=== PATIENT | female | born 1985 | race Caucasian/White ===

== ENCOUNTER 2017-04-25 19:52 | Emergency (ER) | payer BC ==
[2017-04-25 19:52] VITALS: BMI 20.5
[2017-04-25] MEDS ORDERED: Pantoprazole 80 MG in Sodium Chloride 0.9% 100 ML IV STA (20:09)
[2017-04-25] MEDS ORDERED: Sodium Chloride 0.9% 1,000 ML IV ONE (20:09)
--- NOTE | 2017-04-25 20:09 | C.PDOC ---
History Of Present Illness Patient with a hx of diverticulitis presents to the ER with a complaint of rectal bleeding and left flank pain for the past 2 days, associated with decreased PO intake. Denies fever, chills, nausea, or vomiting. Time Seen by Provider: 04/25/17 20:08 Chief Complaint (Nursing): GI Problem History Per: Patient History/Exam Limitations: no limitations Onset/Duration Of Symptoms: Days Current Symptoms Are (Timing): Still Present Number Of Bleeding Episodes: Unknown Amount of Blood Loss: Small Severity: Moderate Pain Scale Rating Of: 5 Quality Of Discomfort: "Pain" Associated Symptoms: Rectal Bleeding. denies: Nausea, Vomiting, Other ((+) Left flank pain (-) Fever, Chills) Modifying Factors: None Recent travel outside of the [place]: No Additional History Per: Patient Past Medical History Reviewed: Historical Data, Nursing Documentation, Vital Signs Vital Signs: Last Vital Signs Temp Pulse 72 04/25/17 22:46 Resp 17 04/25/17 22:46 BP 135/47 L 04/25/17 22:46 Pulse Ox 100 04/25/17 22:46 - Medical History PMH: HTN (treated) - [facility] Procedures CERVICAL LES CAUTERIZAT (12/09/14) D & C NEC (12/09/14) Family History: States: No Known Family Hx - Social History Hx Alcohol Use: No Hx Substance Use: No Review Of Systems Constitutional: Negative for: Fever, Chills ENT: Negative for: Throat Pain Cardiovascular: Negative for: Chest Pain Respiratory: Negative for: Shortness of Breath Gastrointestinal: Positive for: Abdominal Pain, Other (Rectal bleeding). Negative for: Nausea, Vomiting Genitourinary: Negative for: Dysuria Musculoskeletal: Positive for: Back Pain Skin: Negative for: Rash, Lesions Neurological: Negative for: Weakness Psych: Negative for: Anxiety Physical Exam - Physical Exam Appears: Non-toxic Skin: Warm, Dry Head: Normacephalic Eye(s): bilateral: Normal Inspection Oral Mucosa: Dry Neck: Supple Chest: Symmetrical, No Tenderness Cardiovascular: Rhythm Regular Respiratory: No Rales, No Rhonchi, No Wheezing Gastrointestinal/Abdominal: Soft, Tenderness (Diffusely, left side greater than right), Guarding (Voluntary), No Rebound Rectal: Normal Exam, Heme Negative, Other (Dark brown stools) Back: No CVA Tenderness (left) Extremity: Normal ROM Extremity: Bilateral: Atraumatic Pulses: Left Dorsalis Pedis: Normal, Right Dorsalis Pedis: Normal Neurological/Psych: Oriented x3 Gait: Steady ED Course And Treatment - Laboratory Results Result Diagrams: 04/25/17 20:33 04/25/17 20:33 O2 Sat by Pulse Oximetry: 100 Pulse Ox Interpretation: Normal Progress Note: Blood work and urinalysis ordered. Morphine, zofran, and IV fluids administered. Medical Decision Making Medical Decision Making: Upon provider reevaluation patient is feeling better, is medically stable, and requires no further treatment in the ED at this time. Patient will be discharged home with Rx for tramadol . Counseling was provided and all questions were answered regarding diagnosis and need for follow up with your PMD and head esthetician. There is agreement to discharge plan. Return if symptoms persist or worsen. Disposition Counseled Patient/Family Regarding: Studies Performed, Diagnosis, Need For Followup, Rx Given - Disposition Disposition: HOME/ ROUTINE Disposition Time: 20:09 Condition: FAIR Additional Instructions: Please follow up with your primary care doctor and your head esthetician re":left ovarian cyst Prescriptions: traMADol [Ultram] 50 mg PO QID PRN #20 tab PRN Reason: Pain, Severe (8-10) Instructions: Abdominal Pain (ED), Ovarian Cyst (ED) Forms: [employer] (Portuguese) - Clinical Impression Clinical Impression: Abdominal pain, Ovarian cyst - Scribe Statement The provider has reviewed the documentation as recorded by the Scribe Zechariah De Dios All medical record entries made by the Scribe were at my direction and personally dictated by me. I have reviewed the chart and agree that the record accurately reflects my personal performance of the history, physical exam, medical decision making, and the department course for this patient. I have also personally directed, reviewed, and agree with the discharge instructions and disposition.
[2017-04-25] MEDS ORDERED: Sodium Chloride 0.9% 1,000 ML ONE (20:31)
[2017-04-25] MEDS ORDERED: Sodium Chloride 0.9% 100 ML ONE (20:31)
[2017-04-25] MEDS ORDERED: Morphine 4 MG/ML VIAL ONE (20:31)
[2017-04-25 20:39] LABS: BASO # 0.1 K/uL (0.0-0.2); BASO % 0.6 % (0.0-2.0); EOS # 0.1 K/uL (0.0-0.7); EOS % 0.8 % (0.0-4.0); HEMOGLOBIN 13.4 g/dL (11.0-16.0); LYMPH # 2.4 K/uL (1.0-4.3); LYMPH % 25.2 % (20.0-40.0); MEAN CELL VOLUME 84.5 fL (81.0-99.0); MEAN CORPUSCULAR HEMOGLOBIN 28.8 pg (27.0-31.0); MEAN CORPUSCULAR HGB CONC 34.1 g/dL (33.0-37.0); MEAN PLATELET VOLUME 8.4 fL (7.2-11.7); MONO # 0.8 K/uL (0.0-0.8); MONO % 8.4 % (0.0-10.0); NEUT # 6.2 K/uL (1.8-7.0); NRBC % 0.1 % (0.0-2.0); RBC 4.67 Mil/uL (3.80-5.20); RED CELL DISTRIBUTION WIDTH 13.4 % (11.5-14.5); WHITE BLOOD COUNT 9.6 K/uL (4.8-10.8)
[2017-04-25 20:46] LABS: PROTHROMBIN TIME 11.5 SECONDS (9.7-12.2)
[2017-04-25 20:50] LABS: ALB/GLOB RATIO 1.4 (1.0-2.1); ALBUMIN 4.2 g/dL (3.5-5.0); ALT/SGPT 28 U/L (9-52); AST/SGOT 22 U/L (14-36); BLOOD UREA NITROGEN 9 mg/dL (7-17); GFR AFRICAN-AMERICAN > 60; GFR NON-AFRICAN AMERICAN > 60
[2017-04-25 21:24] LABS: HCG,QUALITATIVE URINE NEGATIVE (NEGATIVE)
[2017-04-25 21:26] LABS: SQUAMOUS EPITHIAL 1 /hpf (0-5); URINE BACTERIA RARE (<OCC); URINE BILIRUBIN NEGATIVE (NEGATIVE); URINE BLOOD NEGATIVE (NEGATIVE); URINE CLARITY Clear (Clear); URINE COLOR Colorless (YELLOW); URINE GLUCOSE (UA) NORMAL (Normal); URINE LEUKOCYTE ESTERASE NEG Leu/uL (Negative); URINE NITRATE NEGATIVE (NEGATIVE); URINE PROTEIN NEGATIVE (NEGATIVE); URINE UROBILINOGEN NORMAL mg/dL (0.2-1.0)
[2017-04-25 23:47] VITALS: BP 126/65; PULSE 75; RESP 18; TEMP 98.5; O2SAT 99
--- NOTE | 2017-04-26 08:44 | CT ---
PROCEDURE: CT scan of the abdomen and pelvis dated 04/25/2017 HISTORY: Abdominal pain. , rectal bleed, hx of divertic COMPARISON: No prior study available for comparison TECHNIQUE: Contiguous axial images of the abdomen and pelvis. Oral contrast was administered. No IV contrast given. Coronal and Sagittal reformats generated. Radiation dose: Total exam DLP = This CT exam was performed using one or more of the following dose reduction techniques: Automated exposure control, adjustment of the mA and/or kV according to patient size, and/or use of iterative reconstruction technique. FINDINGS: LOWER THORAX: Minor bibasilar atelectasis/ scarring changes. No focal consolidation effusion or basilar pneumothorax. Small hiatal hernia. Heart size within range of normal. No significant pericardial effusion. LIVER: Liver exhibits normal size. No evidence of obvious hepatic masses collections or calcifications. GALLBLADDER AND BILE DUCTS: Gallbladder is physiologically distended. No evidence of intraluminal gallbladder calculi. PANCREAS: Pancreas appears unremarkable without masses collections or calcifications. SPLEEN: Spleen exhibits normal size and attenuation pattern without mass collection or calcification. . ADRENALS: No adrenal lesions seen. KIDNEYS AND URETERS: The kidneys demonstrate relatively symmetric size. No evidence of nephrolithiasis or hydronephrosis. BLADDER: Urinary bladder is physiologically distended. No evidence of intraluminal urinary bladder calculi. . REPRODUCTIVE: Uterus appears grossly unremarkable. There is a relatively large approximately 3.4 x 3.2 cm cystic lesion left ovary. Follow-up pelvic ultrasound could be performed further evaluation. APPENDIX: What appears to represent normal appendix best seen on axial image number [id number] . No periappendiceal inflammatory changes. . BOWEL: Evaluation of the bowel is limited due to the lack of oral contrast material. Stomach is relatively collapsed which presumably accounts for thick-walled appearance. The possibility of a gastritis not excluded. Visualized loops of small bowel exhibit normal contour and caliber. No evidence acute mechanical small bowel obstruction. Stool and air seen throughout the large bowel. There are multiple colonic diverticula seen along the sigmoid and to a lesser degree distal descending colon. No definitive radiographic evidence of acute diverticulitis. . Moderate amount of stool seen within the cecum/ascending and proximal transverse colon consistent with mild fecal retention/constipation. PERITONEUM: No gross free intraperitoneal air. No free or loculated fluid collections. LYMPH NODES: Unremarkable. No enlarged lymph nodes. VASCULATURE: Unremarkable. No aortic aneurysm. BONES: No fracture or destructive lesion. Visualized lower thoracic and lumbar segments intact. No significant degenerative spondylosis. Remaining osseous structures unremarkable. OTHER FINDINGS: None. IMPRESSION: Limited study as detailed above. . Diverticulosis without radiographic evidence of acute diverticulitis. Findings is as do suggest mild constipation. Large 3.4 cm cystic lesion left ovary. Follow-up pelvic ultrasound recommended for further evaluation. Preliminary report provided by overnight radiology service
== END 2017-04-25 23:46 | disposition home or self-care (01) ==
LOC: C.ER 19:52
DX: N83.209 Unspecified ovarian cyst, unspecified side (principal); R10.9 Unspecified abdominal pain
CPT/HCPCS: 74176; 80053; 81001; 84703; 85025; 85610; 85730; 86850; 86900; 96361; 96374; 96375; 99285; C9113; G0328; J2270; J2405; J7040